=== PATIENT | female | born 1995 | race Caucasian/White ===

== ENCOUNTER 2018-02-19 13:24 | Emergency (ER) | payer MEDICAID ==
[2018-02-19 14:00] LABS: Bilirubin Negative (Negative); Blood, Urine Moderate (Negative); Clarity Cloudy (Clear); Glucose, Urine (Dipstick) Negative (Negative); Leukocyte Large (Negative); Nitrite Negative (Negative); Protein, Urine (Dipstick) 30 mg/dL (Neg-Trace); pH, Urine 7.5 (5.0-9.0)
[2018-02-19 14:01] LABS: Pregnancy Test - Urine (BHCG) Negative (Negative); Pregu Control Background? CLEAR/WHITE (CLR/WHITE); Pregu Control Bar Appear? YES (CONTROL BAR)
[2018-02-19 14:07] LABS: Bacteria/HPF 1+ HPF (None Seen); Crystals/HPF 4+ AMORPH PHOS HPF (Negative)
== END 2018-02-19 14:20 | disposition home or self-care (01) ==
LOC: MADERS 13:24
DX: R31.29 Other microscopic hematuria (principal); N91.2 Amenorrhea, unspecified; R80.9 Proteinuria, unspecified
CPT/HCPCS: 81003; 81015; 81025; 99283

== ENCOUNTER 2018-05-19 14:21 | Emergency (ER) | payer MEDICAID, OTHER ==
[2018-05-19] MEDS ORDERED: diphenhydrAMINE 25 MG CAP ONE ×2 (14:43→23:32)
== END 2018-05-19 14:45 | disposition home or self-care (01) ==
LOC: MADERS 14:21
DX: T78.40XA Allergy, unspecified, initial encounter (principal); Z79.899 Other long term (current) drug therapy
CPT/HCPCS: 99283; Q0163

== ENCOUNTER 2018-05-19 22:00 | Emergency (ER) | payer OTHER ==
[~2018-05-19 22:00] MED LIST: diphenhydrAMINE 25 MG CAP ONE
== END 2018-05-19 23:50 | disposition home or self-care (01) ==
LOC: MADERS 22:00
DX: T78.40XA Allergy, unspecified, initial encounter (principal); L29.9 Pruritus, unspecified; F31.9 Bipolar disorder, unspecified; Z79.899 Other long term (current) drug therapy
CPT/HCPCS: 99282; Q0163